=== PATIENT | male | born 1945 | race Caucasian/White ===

== ENCOUNTER → 2018-04-20 | Outpatient (CLI) | payer MEDICARE, OTHER ==
[~2018-04-20] MED LIST: ASPI-757 PO; HYDR12.561 PO; LISI-346 PO; LISI-353 PO; MULT-1335 PO; PNEU0.5D3 IM
== END ==
LOC: LAB 16:33
PROVIDERS: ATTEND Surgery
DX: C44.622 Squamous cell carcinoma of skin of right upper limb, including shoulder (principal)
CPT/HCPCS: 88305

== ENCOUNTER → 2018-11-07 | Outpatient (CLI) | payer MEDICARE, OTHER ==
--- NOTE | 2018-11-07 10:49 | RADIOLOGY IMAGING REPORT ---
FACILITY: [facility] [place] PATIENT NAME: Brodie Weber : 1945 MR: [id number] V: [id number] EXAM DATE: ORDERING PHYSICIAN: JAME SORENSON TECHNOLOGIST: Location: [facility] [place] Patient: Brodie Weber : 1945 Visit/Account:[id number] Date of Sevice: 11/07/2018 EXAMINATION: Abdominal aortic uterus most screening HISTORY: History of smoking in the 70s and 80s COMPARISON: None. FINDINGS: Suprarenal aorta 1.8 x 1.7 cm Superior infrarenal 1.7 x 1.7 cm Mid infrarenal 1.9 x 1.8 cm Inferior infrarenal 1.6 x 1.8 cm Right common iliac 1.1 cm Left common iliac 1.3 cm IMPRESSION: 1. Negative screening ultrasound study for aortic aneurysm Report Dictated By: Rafal Webb MD at 11/07/2018 10:42 AM Report E-Signed By: Rafal Webb MD at 11/07/2018 10:44 AM WSN:[email or web address]
== END ==
LOC: US 08:00
PROVIDERS: ATTEND Emergency Medicine
DX: Z87.891 Personal history of nicotine dependence (principal)
CPT/HCPCS: 93979

== ENCOUNTER → 2019-01-16 | Outpatient (CLI) | payer MEDICARE, OTHER | LOC: LAB 14:21 | PROVIDERS: ATTEND Surgery | DX: L57.0 Actinic keratosis (principal); B07.9 Viral wart, unspecified | CPT/HCPCS: 88305 ==